=== PATIENT | male | born 1980 | race Caucasian/White ===

== ENCOUNTER 2017-07-05 16:48 | Emergency (ER) | payer SELFPAY ==
[2017-07-05 18:21] VITALS: BP 145/78
--- NOTE | 2017-07-05 18:57 | UC ---
Ear Complaint HPI - HPI Summary HPI Summary: 37 year old male with ear pain . Had flu like illness for 8 days and developed ear pain in the past day. no hearing loss . FATIGUE, SWEATS, CHILLS X 1 WK, VOMITING FIRST 2 DAYS, ONSET LAST NIGHT OF BASE OF RIGHT EAR PAIN RADIATING DOWN RIGHT SIDE OF NECK. no dysphagia. no weight changes. no neck pain or loss of ROM in the neck. no significant lymph node swelling. [ End ] - History of Current Complaint Chief Complaint: UCEar Stated Complaint: EAR PAIN/FLU SYMPTOMS Time Seen by Provider: 07/05/17 18:14 Hx Obtained From: Patient Onset/Duration: Gradual Onset - Allergies/Home Medications Allergies/Adverse Reactions: Allergies Allergy/AdvReac Type Severity Reaction Status Date / Time No Known Allergies Allergy Verified 07/05/17 18:20 PMH/Surg Hx/FS Hx/Imm Hx - Surgical History Surgical History: Yes Surgery Procedure, Year, and Place: Fx ankle 12 yrs ago ORIF procedure - Social History Alcohol Use: Occasionally Substance Use Type: None Smoking Status (MU): Never Smoked Tobacco - Immunization History Most Recent Tetanus Shot: unknown Review of Systems ENT: Ear Ache, Nasal Discharge, Sinus Congestion Musculoskeletal: Myalgia All Other Systems Reviewed And Are Negative: Yes Physical Exam Triage Information Reviewed: Yes Appearance: Well-Appearing, No Pain Distress, Well-Nourished Vital Signs: Initial Vital Signs Temp 98.8 F 07/05/17 18:15 Pulse 77 07/05/17 18:15 Resp 18 07/05/17 18:15 BP 145/78 07/05/17 18:15 Pulse Ox 96 07/05/17 18:15 Vital Signs Reviewed: Yes Eye Exam: Normal ENT Exam: Normal ENT: Positive: Hearing grossly normal, Pharynx normal, Nasal congestion, TM bulging - right, TM dull, TM red - right. Negative: Tonsillar swelling Dental Exam: Normal Neck exam: Normal Neck: Positive: Tenderness @ - left anterior cervical . no parottid or posterior cervical lymph involved Respiratory Exam: Normal Cardiovascular Exam: Normal Musculoskeletal Exam: Normal Neurological Exam: Normal Psychological Exam: Normal Skin Exam: Normal Ear Complaint Course/Dx - Course Course Of Treatment: Viral infection last week that is slowly resolving and has already had mono in the past. No exposure to mumps. -- monitor at this time - Differential Dx/Diagnosis Differential Diagnosis/HQI/PQRI: Otitis Externa, Otitis Media, Perforated TM, TMJ Syndrome, URI Provider Diagnoses: Right AOM Discharge - Discharge Plan Condition: Good Disposition: HOME Prescriptions: Amoxicillin PO (*) [Amoxicillin 875 MG (*)] 875 mg PO BID #20 tab Patient Education Materials: Otitis Media (ED) Referrals: Jose Raul Rubio MD [Primary Care Provider] - 4 Days
== END 2017-07-05 19:04 | disposition home or self-care (01) ==
LOC: UCCORT 16:48
DX: H66.91 Otitis media, unspecified, right ear (principal)
CPT/HCPCS: 99212; G0463

== ENCOUNTER 2017-12-17 09:50 | Emergency (ER) | payer BC, OTHER ==
[2017-12-17 10:03] VITALS: BP 132/83
--- NOTE | 2017-12-17 11:01 | RAD ---
INDICATION: Right shoulder injury. TECHNIQUE: 4 views of the right shoulder were obtained. FINDINGS: There is widening of the acromial clavicular joint space with the distal clavicle displaced superior relative to the acromion process. There is also increased space between the clavicle and coracoid process consistent with injury to the coracoclavicular ligament. No fracture is seen. IMPRESSION: AC SEPARATION DESCRIBED.
--- NOTE | 2017-12-17 11:03 | RAD ---
HISTORY: Right shoulder trauma COMPARISONS: Clavicle dated July 03, 2012 VIEWS: 4, of the clavicles bilaterally with and without weightbearing FINDINGS: BONE DENSITY: Normal. BONES: There is no displaced fracture. JOINTS: There is no arthropathy. ALIGNMENT: There is superior displacement of the clavicle with respect to the acromion, with the inferior margin of the clavicle at the superior margin of the acromion. There is widening of the coracoclavicular interval of approximately 2.3 cm. This is stable with weightbearing SOFT TISSUES: Unremarkable. OTHER FINDINGS: None. IMPRESSION: SUPERIOR DISPLACEMENT OF THE RIGHT CLAVICLE WITH RESPECT TO THE ACROMION, WITH WIDENING OF THE CORACOCLAVICULAR INTERVAL.
--- NOTE | 2017-12-17 11:37 | UC ---
Ricci Jackman Thomas, scrib[facility] for [facility]ami[facility] tenorio MD on 12/17/17 at 1036 . Upper Extremity HPI - HPI Summary HPI Summary: In Room Note: The patient is a 37 year old male complaining of right shoulder pain that began one hour prior to arrival. The patient was working out with ropes when he fell forward and landed directly onto his shoulder. The pain is rated 8/10. The pain is aggravated by moving his arm. He points to the area of the right acromioclavicular joint. Note: Vital signs stable: blood pressure 132/83, pulse ox 100, temperature 99.4, 8/10 pain. Non-smoker. Visit history noncontributory to present complaint. Nurses Note: injured right shoulder while carrying a collection of ropes at [employer] fell forward into a rack - History of Current Complaint Chief Complaint: UCUpperExtremity Stated Complaint: SHOULDER INJURY Time Seen by Provider: 12/17/17 10:15 Hx Obtained From: Patient Onset/Duration: Sudden Onset, Lasting Hours - 1, Still Present Severity Currently: Severe Pain Intensity: 8 Pain Scale Used: 0-10 Numeric Location Of Pain: Is Discrete @ - right shoulder Aggravating Factor(s): Movement Alleviating Factor(s): Nothing Associated Signs And Symptoms: Positive: Negative Related History: Other: - Fell forward and landed on right shoulder - Allergies/Home Medications Allergies/Adverse Reactions: Allergies Allergy/AdvReac Type Severity Reaction Status Date / Time No Known Allergies Allergy Verified 12/17/17 09:51 PMH/Surg Hx/FS Hx/Imm Hx Previously Healthy: Yes - NEGATIVE: DM, CAD - Surgical History Surgical History: Yes Surgery Procedure, Year, and Place: Fx L ankle 12 yrs ago ORIF procedure - Family History Known Family History: Negative: Diabetes - Social History Occupation: Employed Full-time Alcohol Use: Occasionally Substance Use Type: None Smoking Status (MU): Never Smoked Tobacco - Immunization History Most Recent Tetanus Shot: unknown Review of Systems Constitutional: Negative - fever Musculoskeletal: Other: - Right shoulder pain Is Patient Immunocompromised?: No All Other Systems Reviewed And Are Negative: Yes Physical Exam - Summary Physical Exam Summary: Appearance: The patient is well-appearing, is in no pain distress, and is well- nourished. Eyes: Conjunctiva are clear. ENT: The hearing is grossly normal, the pharynx is normal, and the TMs are normal. There is no muffled or hoarse voice. Neck: The neck is supple and there is no lymphadenopathy. Respiratory: The chest is nontender. The lungs are clear, there are normal breath sounds, and there is no respiratory distress. Cardiovascular: Heart is regular rate and rhythm. There is no murmur. Abdomen: The abdomen is soft and nontender. There is no organomegaly. Bowel sounds: present Musculoskeletal: Strength is intact. The patient moves all extremities. The patient reports pain in the area of the right acromioclavicular joint. He has full range of motion. There is mild elevation of clavicle on the right shoulder. There is tenderness over the AC joint. Neurological: The patient is alert. Psychological: The patient displays age appropriate behavior Skin: Negative for rashes. Triage Information Reviewed: Yes Vital Signs: Initial Vital Signs Temp 99.4 F 12/17/17 09:59 Pulse 98 12/17/17 09:59 Resp 16 12/17/17 09:59 BP 132/83 12/17/17 09:59 Pulse Ox 100 12/17/17 09:59 Vital Signs Reviewed: Yes Diagnostics - Radiology Shoulder XR Xray Interpretation: Positive (See Comments) - AC Separation. Dr. Dukes has reviewed this report. Radiology Interpretation Completed By: Radiologist Acromioclavicular Joints XR Xray Interpretation: Positive (See Comments) - SUPERIOR DISPLACEMENT OF THE RIGHT CLAVICLE WITH RESPECT TO THE ACROMION, WITH WIDENING OF THE CORACOCLAVICULAR INTERVAL. Dr. Dukes has reviewed this report. Radiology Interpretation Completed By: Radiologist Upper Extremity Course/Dx - Course Course Of Treatment: The patient is a healthy 37 year old male who fell on his right AC joint. Acromioclavicular joints x-ray shows SUPERIOR DISPLACEMENT OF THE RIGHT CLAVICLE WITH RESPECT TO THE ACROMION, WITH WIDENING OF THE CORACOCLAVICULAR INTERVAL. There is mild elevation of clavicle on the right shoulder. There is tenderness over the AC joint. Differential diagnosis is contusion versus rotator cuff injury versus AC separation. Diagnosis is AC separation, right shoulder. I discussed with the patient AC separation. It appears to be Type 1 or Type 2. The patient has chosen not to use a sling. He requests to see Dr. Garnica. I have also discussed his elevated blood pressure with him and the need for follow up. Medications have been included in the original chart and reviewed. - Differential Dx/Diagnosis Differential Diagnosis/HQI/PQRI: Contusion, Other - Rotator cuff injury, AC separation Provider Diagnoses: AC separation Discharge - Sign-Out/Discharge Documenting (check all that apply): Discharge - patient will be discharged home - Discharge Plan Condition: Stable Disposition: HOME Patient Education Materials: Acromioclavicular Separation (ED) Referrals: Checo Garnica [Medical Doctor] - Jose Raul Rubio MD [Primary Care Provider] - If Needed Additional Instructions: WE DISCUSSED: Your blood pressure reading today was 132/83, indicating PREHYPERTENSION. Follow -up with your primary care provider within 4 weeks for blood pressure readings and further evaluation. When you see Dr. Garnica, check your blood prussure. Ibuprofen 400-600mg PLUS acetaminophen 500mg - 1000mg every 8 hours. Maximum is 3 doses a day. If this dosage is required for more than 5 days, you should re- check with your doctor. PLEASE SEEK CARE AT THE EMERGENCY DEPARTMENT IF SYMPTOMS WORSEN OR IF NEW SYMPTOMS DEVELOP. FOLLOW UP WITH YOUR PRIMARY CARE PHYSICIAN NEEDED. 1. Follow up with Dr. Garnica. 2. You may benefit from a sling or physical therapy. 3. Recheck at anytime for increased pain or disability. - Billing Disposition and Condition Condition: STABLE Disposition: HOME The documentation as recorded by the Ricci fajardo Thomas accurately reflects the service I personally performed and the decisions made by me, Ramiro Dukes MD.
== END 2017-12-17 11:34 | disposition home or self-care (01) ==
LOC: UCEAST 09:50
DX: S43.101A Unspecified dislocation of right acromioclavicular joint, initial encounter (principal); W18.39XA Other fall on same level, initial encounter; Y93.B9 Activity, other involving muscle strengthening exercises; Y92.9 Unspecified place or not applicable
CPT/HCPCS: 73050; 99211; G0463

== ENCOUNTER 2018-01-16 10:50 | Emergency (ER) | payer BC, OTHER ==
[2018-01-16 12:45] VITALS: BP 121/76
--- NOTE | 2018-01-16 13:10 | UC ---
UC General HPI - HPI Summary HPI Summary: Pt Presents with c/o sudden onset of fatigue that began after having multiple episodes of generalized malaise, diarrhea X 2 days that has since resolved. Pt states that he had similar episode that occurred in 2016 and resolved on own after ~ 3 weeks. Pt is seen every 12 weeks by PCP for follow up regarding Low Testosterone. Pt also discussed conflict at work and needing a work note to miss work today and any other day that he is out sick. - History of Current Complaint Chief Complaint: UCGeneralIllness Stated Complaint: FATIGUE Time Seen by Provider: 01/16/18 12:27 Hx Obtained From: Patient Onset/Duration: Sudden Onset, Lasting Days, Still Present Timing: Constant Onset Severity: Moderate Current Severity: None Pain Intensity: 0 Associated Signs & Symptoms: Positive: Weakness, Other - fatigue Related Hx: Recent Illness - Allergy/Home Medications Allergies/Adverse Reactions: Allergies Allergy/AdvReac Type Severity Reaction Status Date / Time No Known Allergies Allergy Verified 01/16/18 12:43 Home Medications: Home Medications NK [No Home Medications Reported] 01/16/18 [History Confirmed 01/16/18] PMH/Surg Hx/FS Hx/Imm Hx Previously Healthy: Yes - has hx of low testosterone, sleep apnea - Surgical History Surgical History: Yes Surgery Procedure, Year, and Place: Fx L ankle 12 yrs ago ORIF procedure - Family History Known Family History: Negative: Diabetes - Social History Occupation: Employed Full-time Lives: Alone Alcohol Use: Weekly Substance Use Type: None Smoking Status (MU): Never Smoked Tobacco Have You Smoked in the Last Year: No - Immunization History Most Recent Tetanus Shot: unknown Review of Systems Constitutional: Fatigue Skin: Negative Eyes: Negative ENT: Negative Respiratory: Negative Cardiovascular: Negative Gastrointestinal: Negative Genitourinary: Negative Motor: Negative Neurovascular: Negative Musculoskeletal: Negative Neurological: Negative Psychological: Negative Is Patient Immunocompromised?: No All Other Systems Reviewed And Are Negative: Yes Physical Exam Triage Information Reviewed: Yes Appearance: Other: - tired appearing Vital Signs: Initial Vital Signs Temp 98.3 F 01/16/18 12:39 Pulse 88 01/16/18 12:39 Resp 16 01/16/18 12:39 BP 121/76 01/16/18 12:39 Pulse Ox 98 01/16/18 12:39 Vital Signs Reviewed: Yes Eye Exam: Normal ENT Exam: Normal Neck exam: Normal Respiratory Exam: Normal Cardiovascular Exam: Normal Musculoskeletal Exam: Normal Neurological Exam: Normal Psychological Exam: Normal Skin Exam: Normal Course/Dx - Differential Dx - Multi-Symptom Differential Diagnoses: Other - post viral fatigue Provider Diagnoses: post viral fatigue. sleep apnea? Discharge - Sign-Out/Discharge Documenting (check all that apply): Discharge/Admit/Transfer - Discharge Plan Condition: Stable Disposition: HOME Patient Education Materials: Fatigue (ED) Forms: *Work Release Referrals: Jose Raul Rubio MD [Primary Care Provider] - As Soon As Possible Additional Instructions: Please follow up with your PCP as soon as possible. It is important to maintain continuity of care and to further investigate your presenting complaints. - Billing Disposition and Condition Condition: STABLE Disposition: HOME
== END 2018-01-16 13:23 | disposition home or self-care (01) ==
LOC: UCCORT 10:50
DX: R53.83 Other fatigue (principal)
CPT/HCPCS: 99211; G0463